=== PATIENT | male | born 1930 | race Caucasian/White ===

== ENCOUNTER 2021-01-15 14:15 | Inpatient (IN) | payer MEDICARE, OTHER ==
[~2021-01-15] VITALS: Ht 170.2 cm; Wt 613.3 kg
--- NOTE | 2021-01-15 14:22 | NUR ---
IVETTE SINGLETON FROM [facility]. PER REPORT, PT WAS NOTED FOR PROGRESSIVE WEAKNESS X 2 DAYS AND WAS SENT HERE FOR FURTHER EVAL BY PMD. GOWNED PLACED ON MONITOR. VSS. AWAITING MD HUGHES.
--- NOTE | 2021-01-15 14:34 | NUR ---
DR CARLTON AT BEDSIDE FOR EVAL.
[2021-01-15 14:56] LABS: BASOPHILS # (AUTO) 0.1 K/uL (0.0-0.2); EOSINOPHILS % (AUTO) 0.7 % (0.0-6.0); HEMATOCRIT 37 % (39-51); HEMOGLOBIN 11.9 g/dL (13.5-17.5); LYMPHOCYTES # (AUTO) 3.1 K/uL (0.8-4.8); LYMPHOCYTES % (AUTO) 32.2 % (20.0-44.0); MEAN CORPUSCULAR HGB CONC 32 g/dl (31.0-36.0); MEAN CORPUSCULAR VOLUME 87 fL (80-96); MONOCYTES # (AUTO) 0.7 K/uL (0.1-1.30); MONOCYTES % (AUTO) 7.1 % (2.0-12.0); NEUTROPHILS # (AUTO) 5.7 K/uL (1.8-8.9); PLATELET COUNT (AUTO) 366 K/uL (150-450); RED BLOOD CELL COUNT(AUTO) 4.29 MIL/uL (4.5-6.0); WHITE BLOOD COUNT (AUTO) 9.6 K/uL (4.3-11.0)
[2021-01-15] MEDS ORDERED: IV NS 0.9% 1,000 ML BAG IV ONE (15:00)
--- NOTE | 2021-01-15 15:00 | NUR ---
ROCK STAR AT BEDSIDE FOR BLOOD DRAW.
[2021-01-15] MEDS ORDERED: TAMS-12 PO (15:24)
[2021-01-15] MEDS ORDERED: MEMA5TAB PO (15:24)
[2021-01-15] MEDS ORDERED: NA P133E RC (15:24)
[2021-01-15] MEDS ORDERED: MAGN400O6 PO (15:24)
[2021-01-15] MEDS ORDERED: METO-357 PO (15:24)
[2021-01-15] MEDS ORDERED: ACET325T53 PO (15:24)
[2021-01-15] MEDS ORDERED: FINA5TAB11 PO (15:24)
[2021-01-15] MEDS ORDERED: FAMO20TA8 PO (15:24)
[2021-01-15] MEDS ORDERED: ASCO500C17 PO (15:24)
[2021-01-15] MEDS ORDERED: ACET-2605 PO (15:24)
[2021-01-15] MEDS ORDERED: MULT-447 PO (15:24)
[2021-01-15] MEDS ORDERED: CALC-34 PO (15:24)
[2021-01-15] MEDS ORDERED: DONE5TAB34 PO (15:24)
[2021-01-15] MEDS ORDERED: DOCU-141 PO (15:24)
[2021-01-15] MEDS ORDERED: SENN-175 PO (15:24)
[2021-01-15] MEDS ORDERED: ATOR20TA PO (15:24)
[2021-01-15] MEDS ORDERED: LATA2.5D15 OP (15:24)
[2021-01-15 15:28] LABS: ALANINE AMINOTRANSFERASE 14 U/L (12-78); ALBUMIN 3.4 g/dL (3.4-5.0); ALKALINE PHOSPHATASE 105 U/L (46-116); ASPARTATE AMINOTRANSFERASE 15 U/L (15-37); BILIRUBIN,DIRECT 0.1 mg/dL (0.0-0.2); BILIRUBIN,TOTAL 0.2 mg/dL (0.2-1.0); CALCIUM, SERUM 8.7 mg/dL (8.5-10.1); CARBON DIOXIDE 26 mmol/L (21-32); CHLORIDE 105 mmol/L (98-107); CREATININE 0.7 mg/dL (0.6-1.3); GLUCOSE 117 mg/dL (74-106); SODIUM SERUM 142 mmol/L (136-145); UREA NITROGEN, BLOOD 19 mg/dL (7-18)
--- NOTE | 2021-01-15 15:42 | NUR ---
PAGED [facility].
--- NOTE | 2021-01-15 15:47 | NUR ---
covid swab done and sent to the lab
--- NOTE | 2021-01-15 17:27 | NUR ---
NURSING SUP GAVE TELE [id number].
--- NOTE | 2021-01-15 18:13 | NUR ---
REPORT GIVEN TO VIBHA. PT AWAITING TRANSFER TO FLOOR.
--- NOTE | 2021-01-15 18:55 | NUR ---
THE PATIENT IS TRANSFERED TO ASSIGNED ROOM PER POLICY
[2021-01-15] MEDS ORDERED: NA PHOS,M-B/NA PHOS,DI-BA 1 EA ENEMA RC PRN (19:30)
--- NOTE | 2021-01-15 19:30 | NUR ---
COMPUTER SYSTEMS SOFTWARE ARCHITECT NOTE RECEIVED PATIENT IN BED. A/OX1, VERY CONFUSED. PATIENT IS ALSO HEARD OF HEARING. TOLERATING ROOM AIR. RESPIRATIONS ARE EVEN AND UNLABORED. NO S/S SOB NOTED. NO C/O PAIN NOTED. IN NO APPARENT DISTRESS. NO IV ACCESS ON PATIENT, INFORMED HIM WILL NEED TO PLACE ONE. INATAL PHYSICAL ASSESSMENT COMPLETED, SKIN ASSESSMENT COMPLETED, PHOTOS TAKEN AND PLACED IN CHART. OVEN PRESS TENDER OBTAINED VITALS SIGNS AND COMPLETED BELONGING LIST. BED IS LOW AND LOCKED, HOB ELEVATED IN SEMI FOWLERS, SIDE RIAL UP X2, CALL LIGHT WITHIN REACH, INFORMED ON USE. WILL CONTINUE TO MONITOR THROUGHOUT SHIFT.
[2021-01-15 20:00] VITALS: BP 102/47
[2021-01-15] MEDS ORDERED: MAGNESIUM HYDROXIDE 30 ML UDC PO PRN (20:00)
[2021-01-15] MEDS ORDERED: ONDANSETRON HCL/PF 4 MG/2 ML VIAL IVP PRN (20:00)
[2021-01-15] MEDS ORDERED: Z GUARD REMEDY 2 OZ OINT TP PRN (20:00)
[2021-01-15] MEDS ORDERED: MAG HYDROX/AL HYDROX/SIMETH 30 ML UDC PO PRN (20:00)
[2021-01-15] MEDS: IV NS 0.9% 1,000 ML IV SCH (20:20)
[2021-01-15] MEDS: FAMOTIDINE (20 MG) 20 MG TABLET PO SCH (20:22)
[2021-01-15] MEDS: ENOXAPARIN SODIUM 30 MG/0.3 ML DISP.SYRIN SQ SCH (20:25)
[2021-01-15] MEDS: SENNOSIDES 8.6 MG TABLET PO SCH (21:03)
[2021-01-15] MEDS: DONEPEZIL 5 MG TABLET PO SCH (21:03)
[2021-01-15] MEDS: ATORVASTATIN 10 MG TABLET PO SCH (21:03)
[2021-01-15 22:14] LABS: COLOR,URINE YELLOW (YELLOW); PROTEIN,URINE 2+ mg/dl (NEGATIVE)
[2021-01-15 22:15] LABS: BILIRUBIN,URINE NEGATIVE (NEGATIVE); LEUKOCYTE ESTERASE ,URINE 2+ (NEGATIVE); NITRITE, URINE POSITIVE (NEGATIVE); UGLUCOSE NEGATIVE (NEGATIVE); UROBILINOGEN,URINE 0.2 EU/dL (0.2)
[2021-01-15 22:18] LABS: BACTERIA,URINE 4+ /HPF (None Seen); RBC,URINE 21-50 /HPF (0-2); SQUAMOUS EPITHELIAL CELL,UR 0-2 /HPF (None Seen); WBC,URINE TOO NUMEROUS TO COUN /HPF (0-3)
[2021-01-16 04:00] VITALS: BP 147/77
[2021-01-16 06:43] LABS: BASOPHILS # (AUTO) 0.1 K/uL (0.0-0.2); BASOPHILS % (AUTO) 1.3 % (0.0-2.0); EOSINOPHILS % (AUTO) 1.3 % (0.0-6.0); HEMATOCRIT 32 % (39-51); HEMOGLOBIN 10.5 g/dL (13.5-17.5); LYMPHOCYTES # (AUTO) 3.6 K/uL (0.8-4.8); LYMPHOCYTES % (AUTO) 42.8 % (20.0-44.0); MEAN CORPUSCULAR HGB CONC 33 g/dl (31.0-36.0); MEAN CORPUSCULAR VOLUME 88 fL (80-96); MONOCYTES # (AUTO) 0.6 K/uL (0.1-1.30); MONOCYTES % (AUTO) 7.5 % (2.0-12.0); NEUTROPHILS # (AUTO) 3.9 K/uL (1.8-8.9); NEUTROPHILS % (AUTO) 47.1 % (43.0-81.0); PLATELET COUNT (AUTO) 284 K/uL (150-450); RED BLOOD CELL COUNT(AUTO) 3.66 MIL/uL (4.5-6.0); WHITE BLOOD COUNT (AUTO) 8.3 K/uL (4.3-11.0)
--- NOTE | 2021-01-16 06:53 | NUR ---
RN NOTE PATIENT RESTING IN BED. A/OX1, HEARD OF HEARING. REMAINS TOLERATING ROOM AIR. NO RESP DISTRESS. NO PAIN. NO DISTRESS. IV ACCESS IN LFA#20 RUNNING NS@60. BED REMAINS LOW AND LOCKED, HOB ELEVATED IN SEMI FOWLERS, SIDE RIAL UP X2, WILL ENDORSE TO ONCOMING SHIFT.
--- NOTE | 2021-01-16 07:05 | NUR ---
RN NOTES RECEIVED PT ON BED, [place], A/Ox1, ON RA, O2 SAT WNL, NO SOB NOTED, LEFT FOREARM IV SITE CLEAN,DRY AND INTACT, SR UP x3, CALL LIGHT WITHIN EASY REACH , BED LOCKED AND IN LOWEST POSITION, CONTINUE TO MONITOR
[2021-01-16 07:18] LABS: CALCIUM, SERUM 8.1 mg/dL (8.5-10.1); CREATININE 0.7 mg/dL (0.6-1.3); PHOSPHORUS 3.2 mg/dL (2.5-4.9); POTASSIUM 3.8 mmol/L (3.5-5.1)
[2021-01-16] MEDS: MEMANTINE HCL 5 MG TABLET PO SCH (08:25)
[2021-01-16] MEDS: TAMSULOSIN 0.4 MG CAP.SR.24H PO SCH (08:25)
[2021-01-16] MEDS: FINASTERIDE (5 MG) 5 MG TABLET PO SCH (08:25)
[2021-01-16] MEDS: DOCUSATE SODIUM 100 MG CAPSULE PO SCH (08:27)
[2021-01-16] MEDS: CALCIUM CARB 250MG /VITAMIN D 1 UDTAB PO SCH (08:27)
[2021-01-16] MEDS: METOPROLOL SUCCINATE 50 MG TAB.SR.24H PO SCH (08:27)
[2021-01-16] MEDS: FAMOTIDINE (20 MG) 20 MG TABLET PO SCH ×2 (08:27→22:34)
--- NOTE | 2021-01-16 09:12 | NUR ---
WOUND CARE CONSULT: REVIEWED CHART, NURSING DOCUMENTATION AND PHOTOS WHICH INDICATE SKIN TEARS TO UPPER AND LOWER EXTREMITIES, PRESENT ON ADMISSION. DPM CONSULT CALLED TO DR YOO. RECOMMENDATIONS MADE FOR SKIN PROTECTION AND WOUND CARE. DISCUSSED WITH NURSING STAFF. MD IN AGREEMENT WITH PLAN OF CARE.
[2021-01-16] MEDS: IV NS 0.9% 1,000 ML IV SCH (11:24)
--- NOTE | 2021-01-16 11:53 | NUR ---
RN NOTES REPORT GIVEN TO ELBERT LUDWIG FOR CONTINUITY OF CARE .
[2021-01-16] MEDS: ENSURE ENLIVE 237 ML LIQUID (VANILLA) PO SCH ×2 (11:59→16:34)
[2021-01-16 12:00] VITALS: BP 118/55
--- NOTE | 2021-01-16 12:00 | NUR ---
RN NOTE PATIENT RECEIVED FROM ALBERTA LUDWIG, WILL CONTINUE TO MONITOR, WILL CONTINUE PLAN OF CARE
--- NOTE | 2021-01-16 15:06 | NUR ---
Manager Registration note: SS consult requested for 'elderly with Dementia, score 5.' AAKASH discussed consult request with charge nurse, Trisha who stated that SS intervention is not needed at this time. SS will remain available as needed.
[2021-01-16 16:00] VITALS: BP 136/60
--- NOTE | 2021-01-16 18:54 | NUR ---
RN NOTE PATIENT OBSERVED IN BED, AWAKE WITH EPISODE OF FORGETFULNESS AND CONFUSION, BREATHING EVEN AND UNLABORED, NOT IN DISTRESS, AFEBRILE AT THIS TIME, PATIENT LEFT FORE ARM IV PATENT INFUSING WELL, WILL CONTINUE TO MONITOR, SAFETY MEASURSE OBSERVED CALL LIGHT WITHIN REACH, WILL ENDORSE TO NOC SHIFT.
[2021-01-16 20:00] VITALS: BP 125/75
--- NOTE | 2021-01-16 20:00 | NUR ---
RN NOTE. RECEIVED THE PT AWAKE, ALERT. CONFUSED. ROOM AIR. IV LT UPPER ARM 20G. IVF NS 60 ML/H. HOB ELEVATED. WILL CONTINUE TO MONITOR VITALS.
[2021-01-16] MEDS ORDERED: MEROPENEM 500 MG in IV NS 0.9% 50 ML IV SCH (20:30)
[2021-01-16] MEDS: MEROPENEM 1 G in IV NS 0.9% 100 ML IV SCH (22:29)
[2021-01-16] MEDS: ATORVASTATIN 10 MG TABLET PO SCH (22:29)
[2021-01-16] MEDS: SENNOSIDES 8.6 MG TABLET PO SCH (22:29)
[2021-01-16] MEDS: VANCOMYCIN 1 GM in IV D5W 250 ML IV SCH (22:29)
[2021-01-16] MEDS: DONEPEZIL 5 MG TABLET PO SCH (22:29)
[2021-01-16] MEDS: ENOXAPARIN SODIUM 30 MG/0.3 ML DISP.SYRIN SQ SCH (22:31)
--- NOTE | 2021-01-16 23:21 | NUR ---
RN NOTE. PT IS AGITATED.AND CONFUSED. IV PULLED OUT X2. NOTIFIED FATEMEH POWERS. ORDER RECEIVED FOR MITCONNERS.
[2021-01-17] VITALS: BP 120/72
[2021-01-17] MEDS: IV NS 0.9% 1,000 ML IV SCH ×2 (02:58→21:00)
--- NOTE | 2021-01-17 03:11 | NUR ---
rn note. am care given, remaining same ivf ns @60ml/h. hob elevater turn and reposition q2 hour.
[2021-01-17 04:00] VITALS: BP 131/80
--- NOTE | 2021-01-17 05:53 | NUR ---
pt slept well during shift. ivf ns @ 60 ml/h. hob elevated. turn and reposition q2h. afebrile. will continue to monitor vitals.
[2021-01-17 07:05] LABS: CALCIUM, SERUM 8.3 mg/dL (8.5-10.1); CREATININE 0.6 mg/dL (0.6-1.3)
--- NOTE | 2021-01-17 07:28 | NUR ---
rn merrem iv during and after no allergic reaction noted.
--- NOTE | 2021-01-17 08:00 | NUR ---
RN note: Pt received alert awake oriented X 1 confused, with periods of forgetfulness. On RA, No breathing distress noted. IV fluids running as ordered. Hand mittens bilateral ON for safety, Pt attempting to remove/pull lines/tubings. Safety measures observed. Continue on contact/droplet to r/o COVID. Continue to monitor closely.
[2021-01-17] MEDS: DOCUSATE SODIUM 100 MG CAPSULE PO SCH (09:05)
[2021-01-17] MEDS: FINASTERIDE (5 MG) 5 MG TABLET PO SCH (09:06)
[2021-01-17] MEDS: FAMOTIDINE (20 MG) 20 MG TABLET PO SCH ×2 (09:06→20:48)
[2021-01-17] MEDS: CALCIUM CARB 250MG /VITAMIN D 1 UDTAB PO SCH (09:06)
[2021-01-17] MEDS: TAMSULOSIN 0.4 MG CAP.SR.24H PO SCH (09:06)
[2021-01-17] MEDS: MEMANTINE HCL 5 MG TABLET PO SCH (09:06)
[2021-01-17] MEDS: METOPROLOL SUCCINATE 50 MG TAB.SR.24H PO SCH (09:06)
[2021-01-17] MEDS: ACETAMINOPHEN 325 MG TABLET PO PRN (09:07)
[2021-01-17] MEDS: ENSURE ENLIVE 237 ML LIQUID (VANILLA) PO SCH ×4 (09:07→17:00)
[2021-01-17] MEDS: MEROPENEM 1 G in IV NS 0.9% 100 ML IV SCH ×2 (09:07→21:00)
[2021-01-17 10:00] VITALS: BP 117/68
[2021-01-17 12:00] VITALS: BP 110/59
[2021-01-17] MEDS: VANCOMYCIN 1 GM in IV D5W 250 ML IV SCH (15:04)
[2021-01-17 16:00] VITALS: BP 120/59
--- NOTE | 2021-01-17 19:30 | NUR ---
RN NOTE RECEIVED PATIENT ON ISOLATION FOR R/O COVID19. PATIENT IN BED. A/OX1, CONFUSED, HEARD OF HEARING. TOLERATING ROOM AIR. RESPIRATIONS ARE EVEN AND UNLABORED. NO S/S SOB NOTED. NO C/O PAIN AT THIS TIME. IN NO APPARENT DISTRESS. IV ACCESS IN LAC#22 RUNNING NS@60ML/HR. PATIENT HAS BILATERAL SOFT MITTENS. BED IS LOW AND LOCKED, HOB ELEVATED IN SEMI FOWLERS, SIDE RAILS UPX2, CALL LIGHT WITHIN REACH. WILL CONTINUE TO MONITOR THROUGHOUT SHIFT.
[2021-01-17 20:00] VITALS: BP 134/68
[2021-01-17] MEDS: ENOXAPARIN SODIUM 30 MG/0.3 ML DISP.SYRIN SQ SCH (20:48)
[2021-01-17] MEDS: SENNOSIDES 8.6 MG TABLET PO SCH (21:02)
[2021-01-17] MEDS: ATORVASTATIN 10 MG TABLET PO SCH (21:02)
[2021-01-17] MEDS: DONEPEZIL 5 MG TABLET PO SCH (21:02)
--- NOTE | 2021-01-18 01:05 | NUR ---
RN NOTE - TRANSFER OF CARE REPORT GIVEN TO ROMERO LUDWIG FOR CONTINUATION OF CARE. PATIENT IN STABLE CONDITION. NO DISTRESS.
[2021-01-18 04:00] VITALS: BP 112/55
--- NOTE | 2021-01-18 06:51 | NUR ---
RN CLOSING NOTE PATIENT IN BED. A/OX1, CONFUSED, HARD OF HEARING. TOLERATING ROOM AIR. RESPIRATIONS ARE EVEN AND UNLABORED. NO S/S SOB NOTED. NO C/O PAIN AT THIS TIME. IV ACCESS IN LAC#22 RUNNING NS@60ML/HR. PATIENT AND INTACT. HAS BILATERAL SOFT MITTENS. BED IS LOW AND LOCKED, HOB ELEVATED IN SEMI FOWLERS, SIDE RAILS UPX3, CALL LIGHT WITHIN REACH. NO ACUTE DISTRESS NOTED AT THIS TIME. ALL NEEDS ATTENDED THROUGHOUT SHIFT. KEPT CLEAN AND DRY. WOUND CARE FOLLOWED ORDER. WILL ENDORSE CONTINUITY OF CARE TO MORNING SHIFT RN
[2021-01-18 08:11] LABS: BASOPHILS # (AUTO) 0.1 K/uL (0.0-0.2); EOSINOPHILS % (AUTO) 1.3 % (0.0-6.0); HEMATOCRIT 33 % (39-51); HEMOGLOBIN 10.7 g/dL (13.5-17.5); LYMPHOCYTES # (AUTO) 2.9 K/uL (0.8-4.8); LYMPHOCYTES % (AUTO) 38.9 % (20.0-44.0); MEAN CORPUSCULAR HGB CONC 33 g/dl (31.0-36.0); MEAN CORPUSCULAR VOLUME 86 fL (80-96); MONOCYTES # (AUTO) 0.7 K/uL (0.1-1.30); MONOCYTES % (AUTO) 9.1 % (2.0-12.0); NEUTROPHILS # (AUTO) 3.7 K/uL (1.8-8.9); NEUTROPHILS % (AUTO) 48.7 % (43.0-81.0); PLATELET COUNT (AUTO) 297 K/uL (150-450); RED BLOOD CELL COUNT(AUTO) 3.78 MIL/uL (4.5-6.0); WHITE BLOOD COUNT (AUTO) 7.5 K/uL (4.3-11.0)
[2021-01-18 08:46] VITALS: BP 132/60
[2021-01-18 09:17] LABS: CALCIUM, SERUM 8.6 mg/dL (8.5-10.1); CREATININE 0.6 mg/dL (0.6-1.3); POTASSIUM 3.9 mmol/L (3.5-5.1)
[2021-01-18] MEDS ORDERED: CEPH500C2 PO (09:22)
[2021-01-18] MEDS: FAMOTIDINE (20 MG) 20 MG TABLET PO SCH (09:26)
[2021-01-18] MEDS: DOCUSATE SODIUM 100 MG CAPSULE PO SCH (09:26)
[2021-01-18] MEDS: TAMSULOSIN 0.4 MG CAP.SR.24H PO SCH (09:26)
[2021-01-18] MEDS: CALCIUM CARB 250MG /VITAMIN D 1 UDTAB PO SCH (09:26)
[2021-01-18] MEDS: MEMANTINE HCL 5 MG TABLET PO SCH (09:26)
[2021-01-18] MEDS: FINASTERIDE (5 MG) 5 MG TABLET PO SCH (09:26)
[2021-01-18 09:28] VITALS: BP 132/60
[2021-01-18] MEDS: ACETAMINOPHEN 325 MG TABLET PO PRN (09:28)
[2021-01-18] MEDS: METOPROLOL SUCCINATE 50 MG TAB.SR.24H PO SCH (09:28)
[2021-01-18] MEDS: ENSURE ENLIVE 237 ML LIQUID (VANILLA) PO SCH (09:33)
[2021-01-18] MEDS: MEROPENEM 1 G in IV NS 0.9% 100 ML IV SCH (09:44)
== END 2021-01-18 12:05 | DRG 682 ==
LOC: ER 14:22 → MEDSG1 17:59
PROVIDERS: ADMIT Internal Medicine; ATTEND Internal Medicine
DX: N17.0 Acute kidney failure with tubular necrosis (principal); G93.41 Metabolic encephalopathy; E43 Unspecified severe protein-calorie malnutrition; N39.0 Urinary tract infection, site not specified; E87.2 Acidosis; R62.7 Adult failure to thrive; E11.9 Type 2 diabetes mellitus without complications; I10 Essential (primary) hypertension; F03.90 Unspecified dementia, unspecified severity, without behavioral disturbance, psychotic disturbance, mood disturbance, and anxiety; I25.10 Atherosclerotic heart disease of native coronary artery without angina pectoris; Z20.822 Contact with and (suspected) exposure to COVID-19; N40.0 Benign prostatic hyperplasia without lower urinary tract symptoms; K21.9 Gastro-esophageal reflux disease without esophagitis; Z96.641 Presence of right artificial hip joint; M13.0 Polyarthritis, unspecified; Z79.899 Other long term (current) drug therapy; E78.5 Hyperlipidemia, unspecified; D63.8 Anemia in other chronic diseases classified elsewhere; S41.111A Laceration without foreign body of right upper arm, initial encounter; S81.812A Laceration without foreign body, left lower leg, initial encounter; X58.XXXA Exposure to other specified factors, initial encounter; Y92.9 Unspecified place or not applicable; E86.0 Dehydration; B95.8 Unspecified staphylococcus as the cause of diseases classified elsewhere
CPT/HCPCS: 36415; 71045-TC; 80048-TC; 80076-TC; 81001; 83605-TC; 83735-TC; 84100-TC; 84484-TC; 85025-TC; 85730-TC; 87040-TC; 87081-TC; 87086-TC; A6253; A6403; G0378; J1650; J2185; J3370; J7030; J7060; U0003